=== PATIENT | female | born 1950 | race African-American/Black ===

== ENCOUNTER → 2017-01-17 18:08 | Outpatient (CLI) | payer MEDICAID ==
[2016-01-14 09:18] VITALS: BMI 37.2
[~2017-01-17 18:08] MED LIST: BAYER CHEWABLE81 MG PO; COLACE100 MG PO; DILAUDID2 MG PO; GLIMEPIRIDE4 MG PO; GLUCOPHAGE500 MG PO; HYDROCODON-ACE1 EAC7 PO; HYDROCODONE-APA1 TAB PO; LEVOTHYROXINE75 MCG PO; PHENERGAN25 M1 PO; PROVENTIL/2.5 MG/3 M NEB; SENOKOT-S TABLE1 TAB PO; SYNTHROID100 MCG PO; SYNTHROID112 MCG PO; TOPROL XL25 MG PO
== END | disposition home or self-care (01) ==
LOC: D.MAMMO 15:00
DX: Z12.31 Encounter for screening mammogram for malignant neoplasm of breast (principal)

== ENCOUNTER → 2018-08-14 17:36 | Outpatient (CLI) | payer MEDICARE ==
[2016-01-14 09:18] VITALS: BMI 37.2
== END | disposition home or self-care (01) ==
LOC: D.MAMMO 15:30
PROVIDERS: ATTEND Family Medicine
DX: Z12.31 Encounter for screening mammogram for malignant neoplasm of breast (principal)

== ENCOUNTER → 2019-02-13 09:27 | Outpatient (CLI) | payer MEDICARE ==
[2016-01-14 09:18] VITALS: BMI 37.2
--- NOTE | 2019-02-15 12:01 | EC ---
PATIENT:DREA VALENTIN DATE OF SERVICE: 02/13/19 SEX: F MEDICAL RECORD: [id number] DATE OF : 54 LOCATION:[address] AGE OF PATIENT: 68 ADMISSION DATE: 02/13/19 REFERRING PHYSICIAN: INTERPRETING PHYSICIAN: CAPO SANCHEZ MD ECHOCARDIOGRAM REPORT ECHO CHARGES 4 ECHO COMPLETE Date: 02/13/19 CLINICAL DIAGNOSIS: H/O HTN/A-FIB ECHOCARDIOGRAPHIC MEASUREMENTS (adult normal given) AC root (d.<3.7cm) 3.3 cm LV Septum d (<1.2 cm> 1.0 cm Valve Excursion 2.1 cm LV Septum (systole) 1.6 cm Left Atria (s.<4.0cm> 3.2 cm LVPW d(<1.2cm) 1.1 cm RV (d.<2.3cm) 2.2 cm LVPW (sytole) 1.8 cm LV diastole(<5.6CM) 5.3 cm MV E-F(>70mm/sec) cm LV systole 3.2 cm LVOT Diameter 2.0 cm MV exc.(>10mm) cm Est.ejection fraction (50-75%) % DOPPLER: LVIT cm/sec A 27.0 cm/sec E 89.0 cm/sec LA cm/sec RVSP 56.0 mmHg LVOT 167 cm/sec AOP1/2T m/s Asc. Ao 167 cm/sec RVOT 96.0 cm/sec RA cm/sec PA 123 cm/sec AV Gradient Peak 11.2 mmHg AV Mean 5.4 mmHg AV Area 2.9 cm MV Gradient Peak 4.8 mmHg MV Mean 1.2 mmHg MV Area cm COMMENTS: OP - HC Test Conductor: 1 SONYA UNIQUE Oracle Sql Developer: 3 Dr. Lara TAPE# PACS Pericardial Effusion Y DATE OF SERVICE: Adequate 2D, color-flow and spectral Doppler, and M-mode. No LVH. LV internal dimensions are normal. Wall motion is normal. EF is greater than or equal to 55%. Aortic valve is tricuspid. No evidence of stenosis by Doppler interrogation. Left atrium is normal at 3.2 cm. Mitral valve is thickened. Mild MR. Right-sided chambers are grossly normal. Ifvx-og-lqfrkhwa TR with color flow imaging. ECHOCARDIOGRAM REPORT [id number] DREA VALENTIN TRANSINT:[id number] Voice Confirmation ID: [id number] DOCUMENT ID: [id number] CAPO SANCHEZ MD at 1201 CC: [id number] DICTATION DATE: 02/14/19 160 PIPING DESIGNER: 02/14/191924 DEP CLI 02/13/19 [facility] [address] [id number]
== END | disposition home or self-care (01) ==
LOC: D.HCCECHO 09:27
PROVIDERS: ATTEND Internal Medicine Interventional Cardiology
DX: I48.91 Unspecified atrial fibrillation (principal)

== ENCOUNTER 2019-10-07 08:00 | Outpatient (CLI) | payer MEDICARE ==
[2016-01-14 09:18] VITALS: BMI 37.2
== END 2019-10-07 10:00 | disposition home or self-care (01) ==
LOC: D.MAMMO 08:00
PROVIDERS: ATTEND Family Medicine
DX: Z12.31 Encounter for screening mammogram for malignant neoplasm of breast (principal)